=== PATIENT | male | born 1940 | race Hispanic/Latino ===

== ENCOUNTER 2024-01-22 16:08 | Emergency (ER) | payer MEDICARE ==
[~2024-01-22] VITALS: Ht 180.3 cm; Wt 93.0 kg
--- NOTE | 2024-01-22 17:30 | HMCIMG ---
Exam: NONCONTRAST CT BRAIN REASON: unwitnessed fall/scalp contusion. COMPARISON: None. TECHNIQUE: Images are obtained from vertex to the skull base. The exam was performed without IV contrast. FINDINGS: There are generous ventricles and sulci. There is decreased attenuation in the deep central white matter. These findings are consistent with atrophy. There are no acute appearing focal parenchymal lesions. There is no evidence of mass, intracranial hemorrhage or acute stroke. Posterior fossa and brainstem structures appear unremarkable. There are no abnormal fluid collections. Extra cranial soft tissues appear unremarkable as well. IMPRESSION: 1. Atrophy, no acute finding. CT was performed with one or more following dose reduction techniques: automated exposure control, adjustment of the mA and kv according to patient's size, or use of a iterative reconstruction technique.
--- NOTE | 2024-01-22 17:31 | HMCIMG ---
CT CERVICAL SPINE W/O CONTRAST REASON: unwitnessed fall/scalp contusion COMPARISON: None TECHNIQUE: Images are obtained from skull base to the upper thoracic spine in the axial plane. Sagittal and coronal reconstruction images were then performed. FINDINGS: There are normal appearing vertebral bodies. There is mild interspace narrowing at C5-6, remaining interspaces appear preserved. There are moderate to marked degenerative changes in the facets. There is no evidence of fracture or subluxation. Soft tissues appear normal as well. IMPRESSION: 1. Moderate cervical degenerative changes most pronounced in the facets. 2. No acute finding, no evidence of fracture. CT was performed with one or more following dose reduction techniques: automated exposure control, adjustment of the mA and kv according to patient's size, or use of a iterative reconstruction technique.
--- NOTE | 2024-01-22 17:51 | ERN ---
General Chief Complaint: Mechanical Fall Stated Complaint: FALL Time Seen by MD: 16:33 Time Seen by Midlevel: 16:33 Source: patient History of Present Illness Initial Comments Patient is an 83-year-old male with a past medical history of Alzheimer's and hypertension presenting to the ER via EMS from [facility] for evaluation following an unwitnessed fall. According to staff patient was found on the floor. They noticed a hematoma to the right forehead so they decided to send him in for further evaluation. On arrival patient was able to answer simple questions and specifically denies any pain. No loss of consciousness is reported. Patient is not on any blood thinners. Allergies: Coded Allergies: No Known Allergies (Unverified Allergy, Unknown, 01/22/24) Past Medical History Past Medical History: Anemia, CAD, High Cholesterol, Hypertension Medical History Other: ALZHEIMERS; BPH Past Surgical History: Other ROS Dictation CONSTITUTIONAL: Negative except for HPI HEAD/FACE: Negative except for HPI EENT: Negative except for HPI RESPIRATORY: Negative except for HPI GASTROINTESTINAL/ABDOMINAL: Negative except for HPI GENITOURINARY: Negative except for HPI MUSCULOSKELETAL: Negative except for HPI INTEGUMENTARY: Negative except for HPI NEUROLOGICAL/PSYCH: Negative except for HPI HEMATOLOGIC/LYMPHATIC: Negative except for HPI All Systems Negative, Except as noted above. 13 point review of systems assessed and all negative except for above. Physical Exam Physical Exam Dictation Vital Signs reviewed General Appearance: Alert, oriented x 3, no acute distress, well developed, nourished. Head and Face: Right forehead hematoma Eyes: PERRL, pink conjunctivas, eyelid no trauma, anterior chamber with arcus senilis. Ears: Pinnas intact and no signs of trauma or erythema ear canals clear and no discharge TM no erythema Nose: No discharge, no bleeding. Oropharynx: Mouth normal, tongue pink, pharynx clear,no erythema, tonsils no exudates, no abscesses noted, mucous membrane moist Neck: Supple, non-tender, no thyromegaly, no masses, no JVD, no bruits Breast:Deferred Chest:No tenderness, no crepitus, no paradoxical movement, no retractions Lungs:Clear, well-ventilated, symmetric, no rales, no wheezing, no rhonchi, no stridor, good breath sounds bilaterally Heart: Regular rate, regular rhythm, no murmur, no gallops Vascular: no peripheral edema, Abdomen: Soft, positive bowel sounds, nondistended, no guarding, nontender, no rebound, no masses no hepatomegaly, no splenomegaly, no Hooper's sign, no hernias. Rectal: Deferred Genital: Deferred Neurological: Normal speech, motor function intact, sensory function intact Musculoskeletal: Neck nontender, full range of motion, back nontender, full range of motion, Extremities: nontender, full range of motion Skin: Color pink, dry, no turgor, no rash, no lacerations, no abrasions, no contusions. Lymphatic: Deferred MDM MDM: Patient is an 83-year-old male with a past medical history of Alzheimer's and hypertension presenting to the ER via EMS from [facility] for evaluation following an unwitnessed fall. According to staff patient was found on the floor. They noticed a hematoma to the right forehead so they decided to send him in for further evaluation. On arrival patient was able to answer simple questions and specifically denies any pain. No loss of consciousness is reported. Patient is not on any blood thinners. On physical examination patient has a hematoma to the right forehead. His daughter arrived later during my examination. She states patient has an extensive history of Alzheimer's and usually forgets who she was. He was able to answer simple questions at times and follows simple commands. He normally walks with the assistance. During my examination patient was able to move all four extremities. There are no obvious signs of external trauma. There is no chest wall tenderness. Given patient was found on the floor a CT scan of the head and neck were obtained which are negative for any acute injury. A chest and hip x-ray were also performed which show no acute abnormality. Patient was observed in the ER for over 2 hours and has remained neurologically at baseline. Patient will be discharged back to nursing. Differential diagnosis: Intracranial bleed, skull fracture, contusion There are no social concerns with this patient. Prescription drug management Prescriptions will include: None Medical management and examination interpretation discussions were had by me with other qualified healthcare professionals as indicated for the patient's care. ED Course Orders Procedure Category Date Status Time Ct Cervical Spine W/O CT 01/22/24 Resulted Contrast 16:49 Ct Head/Brain W/O CT 01/22/24 Resulted Contrast 16:49 Chest 1vw RAD 01/22/24 Resulted 16:49 Pelvis 1-2vws RAD 01/22/24 Resulted 16:49 Vital Signs Date Time Temp Pulse Resp B/P (MAP) Pulse Ox O2 Delivery O2 Flow Rate FiO2 01/22/24 18:13 99.0 85 20 140/67 99 Room Air* 0 21 01/22/24 16:11 98.4 62 20 174/74 99 Room Air [place] [address] [id number] IMAGING REPORT Signed PATIENT: IVANNA IRWIN MR#: [id number] : 1940 SEX: M AGE: 83 LOCATION: [facility] ORDER 50 STATUS: [facility] REPORT#: [id number] SERVICE 48 REASON: fall chest contusion ORDERING PHYSICIAN: THOMAS SAUNDERS PROCEDURE: PELVIS - PELVIS 1-2VWS PELVIS 1-2VWS REASON: fall chest contusion TECHNIQUE: Single AP view was obtained. FINDINGS: Bones appear normal. There are no visible fractures. Joint spaces are unremarkable. Soft tissues appear normal as well. IMPRESSION: 1. Negative AP pelvis. DICTATED BY: RASHAUN EVANS MD DATE: 01/22/241814 ELECTRONICALLY SIGNED BY: RASHAUN EVANS MD DATE: 01/22/241816 [place] [address] [address] IMAGING REPORT Signed PATIENT: IVANNA IRWIN MR#: [id number] : 1940 SEX: M AGE: 83 LOCATION: [facility] ORDER 50 STATUS: [facility] REPORT#: [id number] SERVICE 48 REASON: unwitnessed fall/scalp contusion ORDERING PHYSICIAN: THOMAS SAUNDERS PROCEDURE: HEAD WO - CT HEAD/BRAIN W/O CONTRAST Exam: NONCONTRAST CT BRAIN REASON: unwitnessed fall/scalp contusion. COMPARISON: None. TECHNIQUE: Images are obtained from vertex to the skull base. The exam was performed without IV contrast. FINDINGS: There are generous ventricles and sulci. There is decreased attenuation in the deep central white matter. These findings are consistent with atrophy. There are no acute appearing focal parenchymal lesions. There is no evidence of mass, intracranial hemorrhage or acute stroke. Posterior fossa and brainstem structures appear unremarkable. There are no abnormal fluid collections. Extra cranial soft tissues appear unremarkable as well. IMPRESSION: 1. Atrophy, no acute finding. CT was performed with one or more following dose reduction techniques: automated exposure control, adjustment of the mA and kv according to patient's size, or use of a iterative reconstruction technique. DICTATED BY: RASHAUN EVANS MD DATE: 01/22/241726 ELECTRONICALLY SIGNED BY: RASHAUN EVANS MD DATE: 01/22/24 173 [place] [address] [id number] IMAGING REPORT Signed PATIENT: IVANNA IRWIN MR#: [id number] : 1940 SEX: M AGE: 83 LOCATION: ED ORDER 50 STATUS: [facility] REPORT#: [id number] SERVICE 164 REASON: fall chest contusion ORDERING PHYSICIAN: THOMAS SAUNDERS PROCEDURE: CXR1VW - CHEST 1VW CHEST 1VW REASON: fall chest contusion COMPARISON: None FINDINGS: Single view of the chest was obtained. Lungs are clear. Heart size is normal. There is no pulmonary vascular congestion. Mediastinum and bony thorax appear unremarkable. There has been a previous median sternotomy. IMPRESSION: 1. No acute process seen in the chest. DICTATED BY: RASHAUN EVANS MD DATE: 01/22/241814 ELECTRONICALLY SIGNED BY: RASHAUN EVANS MD DATE: 01/22/24 182 [place] [address] [place] [id number] IMAGING REPORT Signed PATIENT: IVANNA IRWIN MR#: [id number] : 1940 SEX: M AGE: 83 LOCATION: ED ORDER 50 STATUS: [facility] ER REPORT#: [id number] SERVICE 1649 REASON: unwitnessed fall/scalp contusion ORDERING PHYSICIAN: THOMAS SAUNDERS PROCEDURE: C SPIN WO - CT CERVICAL SPINE W/O CONTRAST CT CERVICAL SPINE W/O CONTRAST REASON: unwitnessed fall/scalp contusion COMPARISON: None TECHNIQUE: Images are obtained from skull base to the upper thoracic spine in the axial plane. Sagittal and coronal reconstruction images were then performed. FINDINGS: There are normal appearing vertebral bodies. There is mild interspace narrowing at C5-6, remaining interspaces appear preserved. There are moderate to marked degenerative changes in the facets. There is no evidence of fracture or subluxation. Soft tissues appear normal as well. IMPRESSION: 1. Moderate cervical degenerative changes most pronounced in the facets. 2. No acute finding, no evidence of fracture. CT was performed with one or more following dose reduction techniques: automated exposure control, adjustment of the mA and kv according to patient's size, or use of a iterative reconstruction technique. DICTATED BY: RASHAUN EVANS MD DATE: 01/22/241727 ELECTRONICALLY SIGNED BY: RASHAUN EVANS MD DATE: 01/22/241730 DX & DISP Disposition: Discharge Departure Impression: Primary Impression: Fall Additional Impression: Head contusion Condition: Stable Additional Instructions: Your CT scan of the head and neck are negative for any acute injury. Your chest x-ray does not show any rib fractures or collapsed lungs. Your hip x-ray shows no acute fracture. Referrals: SELF,REFERRAL (PCP) Time of Disposition: 17:51 I have reviewed the case, and I agree with, Diagnosis and Plan I performed the substantive portion of the visit. I have reviewed and personally made and approve the management plan that is documented in the note by myself or the MAGAN. I acknowledge for responsibility for the patient's management plan. THOMAS SAUNDERS Jan 22, 2024 17:51
[2024-01-22 18:13] VITALS: BP 140/67; PULSE 85; RESP 20; TEMP 98.9; O2SAT 99
--- NOTE | 2024-01-22 18:17 | HMCIMG ---
PELVIS 1-2VWS REASON: fall chest contusion TECHNIQUE: Single AP view was obtained. FINDINGS: Bones appear normal. There are no visible fractures. Joint spaces are unremarkable. Soft tissues appear normal as well. IMPRESSION: 1. Negative AP pelvis.
--- NOTE | 2024-01-22 18:20 | HMCIMG ---
CHEST 1VW REASON: fall chest contusion COMPARISON: None FINDINGS: Single view of the chest was obtained. Lungs are clear. Heart size is normal. There is no pulmonary vascular congestion. Mediastinum and bony thorax appear unremarkable. There has been a previous median sternotomy. IMPRESSION: 1. No acute process seen in the chest.
== END 2024-01-22 18:14 | disposition home or self-care (01) ==
LOC: EDH 16:08
DX: S00.03XA Contusion of scalp, initial encounter (principal); E78.00 Pure hypercholesterolemia, unspecified; F02.80 Dementia in other diseases classified elsewhere, unspecified severity, without behavioral disturbance, psychotic disturbance, mood disturbance, and anxiety; I10 Essential (primary) hypertension; I25.10 Atherosclerotic heart disease of native coronary artery without angina pectoris; W18.39XA Other fall on same level, initial encounter; Y93.89 Activity, other specified; Y92.89 Other specified places as the place of occurrence of the external cause; Y99.8 Other external cause status
CPT/HCPCS: 70450; 71045; 72125; 72170; 99284